=== PATIENT | male | born 1945 | race Caucasian/White ===

== ENCOUNTER 2018-08-25 07:18 | Day surgery (SDC) | payer OTHER ==
[~2018-08-25] VITALS: Ht 177.8 cm; Wt 97.1 kg
[~2018-08-25 07:18] MED LIST: ATOR40TA52 PO; BUPR100T14 PO; DONETAB6 PO; GABA300C10 PO; INSU1INJ14 SC; LEV50T PO; LIRA18IN2 SUBCUT; LOVA40TA72 PO; METO25TA62 PO; NATE120T5 PO; OMEP20TA PO; RASA1TAB4 PO; ROPI0.5T PO; SERT-274 PO; TAMS0.4C36 PO; WARF10TA20 PO
[2018-08-25 09:18] LABS: Partial Thromboplastin Time 24.2 sec (23.78-33.04); Prothrombin Time 10.1 sec (9.27-12.13)
[2018-08-25] MEDS ORDERED: IODIXANOL 320MG/ML 100ML BTL IV ONE (10:03)
[2018-08-25] MEDS ORDERED: LIDOCAINE 2%HCL (LOCAL ANESTH.) INJ 20ML MDV ONE (10:03)
[2018-08-25] MEDS ORDERED: ANGIOMAX 250 MG VIAL IV ONE (10:07)
[2018-08-25] MEDS ORDERED: fentaNYL CITRATE 100 MCG/2 ML VL ONE (10:08)
[2018-08-25] MEDS ORDERED: MIDAZOLAM HCL 1MG/1ML-2 ML VIAL ONE (10:08)
[2018-08-25] MEDS ORDERED: SODIUM CHL 0.9% 50 ML ONE (10:08)
[2018-08-25] MEDS ORDERED: VERAPAMIL 2.5MG/ML INJ 2ML VIAL IV ONE (10:11)
[2018-08-25] MEDS ORDERED: ACETAMINOPHEN 500 MG TAB PO PRN (11:15)
[2018-08-25] MEDS ORDERED: HYDROcodone-ACET 5/325MG TAB PO PRN (11:15)
[2018-08-25] MEDS ORDERED: ONDANSETRON HCL 4 MG/2 ML VIAL IV PRN (11:15)
== END 2018-08-25 13:00 | disposition home or self-care (01) ==
LOC: CATH 07:18
PROVIDERS: ATTEND Internal Medicine
DX: I25.10 Atherosclerotic heart disease of native coronary artery without angina pectoris (principal); B39.9 Histoplasmosis, unspecified; F17.210 Nicotine dependence, cigarettes, uncomplicated; J44.9 Chronic obstructive pulmonary disease, unspecified; I10 Essential (primary) hypertension; E11.9 Type 2 diabetes mellitus without complications; I25.2 Old myocardial infarction; R00.2 Palpitations; Z86.73 Personal history of transient ischemic attack (TIA), and cerebral infarction without residual deficits; Z79.899 Other long term (current) drug therapy
CPT/HCPCS: 36415; 85610; 85730; 93005; 93454; 93571; 93572; A6257; C1769; C1887; C1894; J0583; J1644; J2250; J3010; J7030; Q9967; 99152; 99153

== ENCOUNTER 2018-09-29 10:51 | Day surgery (SDC) | payer OTHER ==
[2018-09-24 14:08] LABS: Urine WBC None Seen /hpf (0 - 3)
[2018-09-24 14:11] LABS: Urine Bacteria NONE SEEN /hpf (None Seen); Urine Blood Negative /uL (Negative); Urine Specific Gravity 1.014 (1.001-1.035)
[2018-09-24 14:27] LABS: Basophils # (auto) 0.1 uL; Basophils % (auto) 0.7 % (0.0-2.0); Eosinophils # (auto) 0.1 uL; Eosinophils % (auto) 1.2 % (0.0-7.0); Hematocrit 44.1 % (41.0-53.0); Hemoglobin 14.9 g/dL (13.5-17.5); Lymphocytes # (auto) 1.5 uL; Lymphocytes % (auto) 17.4 % (10.0-50.0); Mean Corpuscular Hemoglobin 32.2 pg (28.0-32.0); Mean Corpuscular Hgb Conc. 33.8 g/dL (32.0-36.0); Mean Corpuscular Volume 95.3 fL (80.0-100.0); Monocytes # (auto) 0.7 uL; Monocytes % (auto) 8.7 % (0.0-12.0); Nucleated Red Blood Cells % 0.1 %; Platelet Count (auto) 124 10^3/uL (140-450); Red Blood Cells 4.63 10^6/uL (4.5-5.90); Red Cell Distribution Width 13.3 % (11.8-14.3); White Blood Cell 8.3 10^3/uL (4.4-10.8)
[2018-09-24 14:29] LABS: INR 1.24 (0.9-1.15); Partial Thromboplastin Time 26.8 sec (23.64-32.05)
[2018-09-24 14:45] LABS: Albumin 3.2 g/dL (3.4-5.0); Calcium 9.1 mg/dL (8.5-10.1); Potassium 5.3 mmol/L (3.5-5.1)
[2018-09-24 14:50] LABS: BUN/Creatinine Ratio 13.6; Bilirubin, Total 0.3 mg/dL (0.2-1.0); Total Protein 6.6 g/dL (6.4-8.2)
[~2018-09-29] VITALS: Ht 177.8 cm; Wt 93.4 kg
[2018-09-29] MEDS ORDERED: ceFOXitin 2GM/100ML 100 ML IV ONE (13:28)
[2018-09-29] MEDS ORDERED: HYDROCORTISONE SOD SUCC 100 MG/2ML INJ VIAL IV ONE (13:55)
[2018-09-29] MEDS ORDERED: fentaNYL CITRATE 100 MCG/2 ML VL ONE (14:02)
[2018-09-29] MEDS ORDERED: MIDAZOLAM HCL 1MG/1ML-2 ML VIAL ONE (14:02)
[2018-09-29] MEDS ORDERED: PROPOFOL 10 MG/ML 20 ML IV ONE (14:02)
[2018-09-29] MEDS ORDERED: ePHEDrine SULFATE 50 MG/ML AMP IV PRN (14:45)
[2018-09-29] MEDS ORDERED: ONDANSETRON HCL 4 MG/2 ML VIAL IV ONE (14:45)
[2018-09-29] MEDS ORDERED: hydrALAZINE HCL 20 MG/ML VL IV PRN (14:45)
[2018-09-29] MEDS ORDERED: fentaNYL CITRATE 100 MCG/2 ML VL IV ONE (15:00)
[2018-09-29 15:25] VITALS: BP 155/80
== END 2018-09-29 15:55 | disposition home or self-care (01) ==
LOC: SUR 10:51
PROVIDERS: ATTEND Urology
DX: C67.9 Malignant neoplasm of bladder, unspecified (principal); I25.10 Atherosclerotic heart disease of native coronary artery without angina pectoris; I10 Essential (primary) hypertension; I25.2 Old myocardial infarction; J44.9 Chronic obstructive pulmonary disease, unspecified; I34.0 Nonrheumatic mitral (valve) insufficiency; I25.3 Aneurysm of heart; I34.1 Nonrheumatic mitral (valve) prolapse; M17.0 Bilateral primary osteoarthritis of knee; G45.9 Transient cerebral ischemic attack, unspecified; E66.9 Obesity, unspecified; E78.5 Hyperlipidemia, unspecified; E11.40 Type 2 diabetes mellitus with diabetic neuropathy, unspecified; F17.210 Nicotine dependence, cigarettes, uncomplicated; Z90.5 Acquired absence of kidney; Z68.29 Body mass index [BMI] 29.0-29.9, adult; Z79.4 Long term (current) use of insulin; Z79.01 Long term (current) use of anticoagulants; Z79.899 Other long term (current) drug therapy; Z98.890 Other specified postprocedural states
CPT/HCPCS: 36415; 52234; 80053; 81001; 82962; 85025; 85610; 85730; 87086; J0694; J1720; J2250; J2704; J3010

== ENCOUNTER → 2019-09-23 | Day surgery (SDC) | payer OTHER ==
[~2019-09-23] VITALS: Ht 177.8 cm; Wt 95.3 kg
[~2019-09-23] MED LIST changes: +ACCU-CHEK COMFORT CURVE STRIP VI ONE; +ACET-1603 PO; +ALBU108A5 IN; +ALBUTEROL SULF 2.5 MG/0.5ML(0.5%) NEB SOLN NEB ONE; +ALBUTEROL SULF 2.5 MG/0.5ML(0.5%) NEB SOLN ONE; -BUPR100T14 PO; +CIPROFLOXACIN 400MG/200ML 200 ML IV ONE; +ETOMIDATE (2MG/ML) 20ML VIAL IV ONE; +FURO40TA4 PO; +GLYCOPYRROLATE 0.2 MG/ML 1ML VIAL ONE; +HYDROmorphone HCL 2 MG/ML VL IV PRN; +IPRATROPIUM BROM 0.5 MG/2.5ML INH SOL NEB ONE; +IPRATROPIUM BROM 0.5 MG/2.5ML INH SOL ONE; +LIDOCAINE 1% (LOCAL ANESTH.) PF 5ml SDV ONE; +MEM5T PO; -METO25TA62 PO; +METO25TA93 PO; +MIDAZOLAM HCL 1MG/1ML-2 ML VIAL ONE; +NALOXONE HCL 0.4 MG/ML VIAL IV PRN; +NEOSTIGMINE 1 MG/ML INJ (10mg/10ML VIAL) ONE; +ONDANSETRON HCL 4 MG/2 ML VIAL IV PRN; +ROCURONIUM 10MG/ML 10ML VIAL IV ONE; -ROPI0.5T PO; +ROPI0.5T16 PO; +SODIUM CHLORIDE LOCK 10 ML ONE; +SUCCINYLCHOLINE CHLORIDE 20 MG/ML 10ML VIAL IV ONE; +TIOT17SP IN; +ePHEDrine SULFATE 50 MG/ML AMP ONE; +fentaNYL CITRATE 100 MCG/2 ML VL ONE; +mitoMYcin 40 MG in STERILE WATER 60 ML IS ONE
[2019-09-23 10:28] VITALS: BP 143/70
== END | disposition home or self-care (01) ==
LOC: SUR 07:00
PROVIDERS: ATTEND Urology
DX: C68.9 Malignant neoplasm of urinary organ, unspecified (principal); C67.5 Malignant neoplasm of bladder neck; E66.01 Morbid (severe) obesity due to excess calories; E11.22 Type 2 diabetes mellitus with diabetic chronic kidney disease; I12.9 Hypertensive chronic kidney disease with stage 1 through stage 4 chronic kidney disease, or unspecified chronic kidney disease; N18.9 Chronic kidney disease, unspecified; K21.9 Gastro-esophageal reflux disease without esophagitis; J44.9 Chronic obstructive pulmonary disease, unspecified; E11.40 Type 2 diabetes mellitus with diabetic neuropathy, unspecified; F32.9 Major depressive disorder, single episode, unspecified; Z11.59 Encounter for screening for other viral diseases; Z98.890 Other specified postprocedural states; Z79.899 Other long term (current) drug therapy; Z87.891 Personal history of nicotine dependence; Z85.528 Personal history of other malignant neoplasm of kidney; Z68.28 Body mass index [BMI] 28.0-28.9, adult
CPT/HCPCS: 51720; 52240; 82962; 88305; 94640; J0330; J0744; J2250; J3010; J7644; J9280; U0003

== ENCOUNTER 2020-05-25 06:18 | Day surgery (SDC) | payer OTHER ==
[~2020-05-25] VITALS: Ht 177.8 cm; Wt 95.3 kg
[~2020-05-25 06:18] MED LIST changes: -ACCU-CHEK COMFORT CURVE STRIP VI ONE; -ALBU108A5 IN; +ALBUAER3 IN; -ALBUTEROL SULF 2.5 MG/0.5ML(0.5%) NEB SOLN NEB ONE; -ALBUTEROL SULF 2.5 MG/0.5ML(0.5%) NEB SOLN ONE; +ASCO500T11 PO; +B-COTAB59 PO; +CHOL100047 PO; -CIPROFLOXACIN 400MG/200ML 200 ML IV ONE; -ETOMIDATE (2MG/ML) 20ML VIAL IV ONE; +FERR-7 PO; -GLYCOPYRROLATE 0.2 MG/ML 1ML VIAL ONE; -HYDROmorphone HCL 2 MG/ML VL IV PRN; +INSUINJ18 SC; -IPRATROPIUM BROM 0.5 MG/2.5ML INH SOL NEB ONE; -IPRATROPIUM BROM 0.5 MG/2.5ML INH SOL ONE; -LIDOCAINE 1% (LOCAL ANESTH.) PF 5ml SDV ONE; -MIDAZOLAM HCL 1MG/1ML-2 ML VIAL ONE; +MULT-1018 PO; -NALOXONE HCL 0.4 MG/ML VIAL IV PRN; -NEOSTIGMINE 1 MG/ML INJ (10mg/10ML VIAL) ONE; -ONDANSETRON HCL 4 MG/2 ML VIAL IV PRN; -ROCURONIUM 10MG/ML 10ML VIAL IV ONE; -SODIUM CHLORIDE LOCK 10 ML ONE; -SUCCINYLCHOLINE CHLORIDE 20 MG/ML 10ML VIAL IV ONE; -ePHEDrine SULFATE 50 MG/ML AMP ONE; -fentaNYL CITRATE 100 MCG/2 ML VL ONE; -mitoMYcin 40 MG in STERILE WATER 60 ML IS ONE
[2020-05-25] MEDS ORDERED: IOHEXOL 300 MG/ML 100ML BOTTLE IJ ONE (07:11)
[2020-05-25] MEDS ORDERED: LIDOCAINE 2% JELLY 11ml (GLYDO) ONE (07:11)
[2020-05-25] MEDS ORDERED: CIPROFLOXACIN 400MG/200ML 200 ML IV ONE (07:53)
[2020-05-25] MEDS ORDERED: LIDOCAINE 2% (LOCAL ANESTH.) PF 5ml SDV ONE (08:32)
[2020-05-25] MEDS ORDERED: PROPOFOL 10 MG/ML 20 ML IV ONE (08:32)
[2020-05-25] MEDS ORDERED: GLYCOPYRROLATE 0.2 MG/ML 1ML VIAL ONE (08:32)
[2020-05-25] MEDS ORDERED: fentaNYL CITRATE 100 MCG/2 ML VL ONE (08:32)
[2020-05-25] MEDS ORDERED: MIDAZOLAM HCL 1MG/1ML-2 ML VIAL ONE (08:32)
[2020-05-25] MEDS ORDERED: ONDANSETRON HCL 4 MG/2 ML VIAL ONE (08:33)
[2020-05-25] MEDS ORDERED: ePHEDrine SULFATE 50 MG/ML AMP IV PRN (09:30)
[2020-05-25] MEDS ORDERED: LABETALOL HCL 5 MG/ML 4ML SYRINGE IV PRN (09:30)
[2020-05-25] MEDS ORDERED: ONDANSETRON HCL 4 MG/2 ML VIAL IV PRN (09:30)
[2020-05-25 10:00] VITALS: BP 145/69
== END 2020-05-25 10:15 | disposition home or self-care (01) ==
LOC: SUR 06:18
PROVIDERS: ATTEND Urology
DX: D49.4 Neoplasm of unspecified behavior of bladder (principal); G47.30 Sleep apnea, unspecified; E66.01 Morbid (severe) obesity due to excess calories; E11.22 Type 2 diabetes mellitus with diabetic chronic kidney disease; I12.9 Hypertensive chronic kidney disease with stage 1 through stage 4 chronic kidney disease, or unspecified chronic kidney disease; N18.30 Chronic kidney disease, stage 3 unspecified; J43.9 Emphysema, unspecified; Z85.51 Personal history of malignant neoplasm of bladder; Z90.5 Acquired absence of kidney; Z20.822 Contact with and (suspected) exposure to COVID-19; Z98.890 Other specified postprocedural states; Z79.899 Other long term (current) drug therapy; Z86.73 Personal history of transient ischemic attack (TIA), and cerebral infarction without residual deficits; Z68.30 Body mass index [BMI] 30.0-30.9, adult; Z87.891 Personal history of nicotine dependence
CPT/HCPCS: 52005; 74018; 74420; 82962; J0744; J2001; J2250; J2405; J2704; J3010; Q9967; U0003; 76000